=== PATIENT | male | born 2000 | race African-American/Black ===

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

== ENCOUNTER 2020-03-28 00:50 | Emergency (ER) | payer OTHER ==
[~2020-03-28] VITALS: Ht 177.8 cm; Wt 63.5 kg
[~2020-03-28 00:50] MED LIST: NAPROSYN500 MG PO; VISTARIL 25 MG25 M1 PO
[2020-03-28] MEDS ORDERED: MOBIC15 MG PO (02:32)
[2020-03-28 02:41] VITALS: BP 125/73
== END 2020-03-28 02:43 | disposition home or self-care (01) ==
LOC: ER 00:50
DX: S40.212A Abrasion of left shoulder, initial encounter (principal); S80.812A Abrasion, left lower leg, initial encounter; Z91.010 Allergy to peanuts; Z88.0 Allergy status to penicillin; W18.30XA Fall on same level, unspecified, initial encounter; Y93.89 Activity, other specified; Y92.89 Other specified places as the place of occurrence of the external cause; Y99.9 Unspecified external cause status

== ENCOUNTER → 2021-03-21 | Emergency (ER) | payer OTHER ==
[~2021-03-21] VITALS: Ht 180.3 cm; Wt 63.5 kg
[~2021-03-21] MED LIST changes: +MOBIC15 MG PO
[2021-03-21 18:20] VITALS: BP 132/83
== END ==
LOC: ER 15:56
DX: R55 Syncope and collapse (principal); R07.89 Other chest pain; Z88.8 Allergy status to other drugs, medicaments and biological substances; Z91.010 Allergy to peanuts; Z88.0 Allergy status to penicillin; Z91.048 Other nonmedicinal substance allergy status; Z79.899 Other long term (current) drug therapy